=== PATIENT | female | born 1985 | race Caucasian/White ===

== ENCOUNTER 2021-08-27 08:35 | Day surgery (SDC) | payer BC ==
[2021-08-24 15:46] VITALS: BMI 52.5
[2021-08-27] MEDS ORDERED: BUPIVACAINE HCL/PF 0.25% (2.5MG/ML) 10 ML VIAL ONE (10:30)
[2021-08-27] MEDS ORDERED: oxyCODONE HCL 5 MG TABLET PO PRN (13:24)
[2021-08-27] MEDS ORDERED: ONDANSETRON 4 MG/2 ML VIAL IVPUSH PRN ×2 (13:24→13:28)
[2021-08-27] MEDS ORDERED: HYDROmorphone HCL/PF 1 MG/ML VIAL IVPB PRN (13:30)
[2021-08-27] MEDS ORDERED: SODIUM CHLORIDE 1,000 ML IV SCH (13:30)
[2021-08-27] MEDS ORDERED: FAMOTIDINE 20 MG/50 ML IVPB 20 MG/50 ML MG IVPB ONE (13:33)
[2021-08-27] MEDS ORDERED: GLYCOPYRROLATE 0.2 MG/1 ML VIAL ONE (13:51)
[2021-08-27] MEDS ORDERED: NEOSTIGMINE METHYLSULFATE 0.5 MG/1 ML - 10 ML MDV ONE (13:52)
[2021-08-27 14:31] LABS: CALCIUM 8.8 mg/dl (8.5-10); CREATININE 0.7 mg/dl (0.55-1.3)
[2021-08-27] MEDS ORDERED: ENOXAPARIN NA (PORCINE) 40 MG/0.4 ML DISP.SYRIN SQ ONE ×2 (15:00→16:25)
[2021-08-27 15:34] LABS: HEMATOCRIT 38.4 % (32.4-45.2); HEMOGLOBIN 12.6 GM/dL (10.7-15.3); MCH 27.1 pg (25.7-33.7); MCHC 32.8 g/dl (32.0-36.0); MEAN CELL VOLUME 82.6 fl (80-96); MEAN PLT VOLUME 8.1 fl (7.5-11.1); PLATELET COUNT 371 10^3/uL (134-434); RBC 4.64 M/mm3 (3.60-5.2); RDW 14.2 % (11.6-15.6); WHITE BLOOD COUNT 11.2 K/mm3 (4.0-10.0)
[2021-08-27 15:40] VITALS: TEMP 97.7
[2021-08-27] MEDS ORDERED: oxyCODONE HCL 5 MG TABLET ONE (16:24)
[2021-08-27] MEDS ORDERED: SIMETHICONE 80 MG TAB.CHEW (FP) PO PRN (17:32)
[2021-08-27] MEDS ORDERED: ONDANSETRON *ODT* 4 MG TABLET ONE (18:40)
[2021-08-27 19:22] VITALS: BP 149/87; PULSE 83
[2021-08-27] MEDS ORDERED: FAMOTIDINE 20 MG/50 ML IVPB 20 MG/50 ML MG IVPB SCH (22:00)
== END 2021-08-27 19:10 | disposition home or self-care (01) ==
LOC: FASU 08:35
PROVIDERS: ATTEND Surgery
PROC: 0FB24ZX Excision of Left Lobe Liver, Percutaneous Endoscopic Approach, Diagnostic (ICD-10-PCS; 2021-08-27)
PROC: 0DV64CZ Restriction of Stomach with Extraluminal Device, Percutaneous Endoscopic Approach (ICD-10-PCS; principal; 2021-08-27 11:26)
DX: E66.01 Morbid (severe) obesity due to excess calories (principal); Z68.43 Body mass index [BMI] 50.0-59.9, adult; R16.0 Hepatomegaly, not elsewhere classified
CPT/HCPCS: 43770; 49321; C1889; 36415; 74240-TC-FY; 80048; 84703; 85027; 88307-TC; 88313-TC; 94760; Q0162

== ENCOUNTER 2021-09-01 19:29 | Observation (INO) | payer BC ==
[2021-09-01 19:36] VITALS: BMI 52.4
[2021-09-01 20:25] LABS: BASO % 0.3 % (0-2.0); EOS % 1.3 % (0-4.5); HEMOGLOBIN 15.5 G/dL (10.7-15.3); LYMPH % 18.1 % (8-40); MCH 28.9 pg (25.7-33.7); MCHC 35.3 g/dl (32.0-36.0); MEAN PLT VOLUME 7.4 fl (7.5-11.1); MONO % 6.9 % (3.8-10.2); NEUT % 73.5 % (42.8-82.8); PLATELET COUNT 500.8 10^3/uL (134-434); RBC 5.37 10^6/uL (3.60-5.2); WHITE BLOOD COUNT 14.7 10^3/uL (4.0-10.8)
[2021-09-01 20:32] LABS: ALBUMIN 4.5 g/dl (3.4-5.0); BILIRUBIN,TOTAL 1.4 mg/dl (0.2-1); CALCIUM 10.1 mg/dl (8.5-10); CREATININE 0.8 mg/dl (0.55-1.3); TOT PROT 8.5 g/dl (6.4-8.2)
[2021-09-01 20:33] LABS: INR 1.2 (0.83-1.09); PROTHROMBIN TIME (PATIENT) 13.8 SEC (9.7-13.0)
[2021-09-02 09:23] LABS: CALCIUM 9.4 mg/dl (8.5-10); CREATININE 0.7 mg/dl (0.55-1.3)
[2021-09-02 09:33] LABS: MEAN PLT VOLUME 7.6 fl (7.5-11.1)
[2021-09-02 09:38] LABS: HEMATOCRIT 40.1 % (32.4-45.2); HEMOGLOBIN 13.7 G/dL (10.7-15.3); MCH 28.2 pg (25.7-33.7); MCHC 34.2 g/dl (32.0-36.0); MEAN CELL VOLUME 82.6 fl (80-96); PLATELET COUNT 480.3 10^3/uL (134-434); RBC 4.85 10^6/uL (3.60-5.2); RDW 14.9 % (11.6-15.6); WHITE BLOOD COUNT 13.4 10^3/uL (4.0-10.8)
[2021-09-02 14:06] VITALS: BP 128/79; TEMP 99.4
[2021-09-02 14:32] VITALS: PULSE 106
[2021-09-02 14:39] LABS: EPITHELIAL CELLS MANY /hpf
== END 2021-09-02 16:46 | disposition home or self-care (01) ==
LOC: FER 19:29 → FM/S 22:40 → UNDOADMOB 09-02 00:27
PROVIDERS: ADMIT Hospitalist; ATTEND Nurse Practitioner Acute Care
DX: Z98.84 Bariatric surgery status (principal); E66.01 Morbid (severe) obesity due to excess calories; Z68.43 Body mass index [BMI] 50.0-59.9, adult; R77.8 Other specified abnormalities of plasma proteins; R06.02 Shortness of breath; J95.89 Other postprocedural complications and disorders of respiratory system, not elsewhere classified; R00.0 Tachycardia, unspecified; Z20.822 Contact with and (suspected) exposure to COVID-19; Z87.891 Personal history of nicotine dependence
CPT/HCPCS: 36415; 71275-TC; 80048; 80053; 80061; 81003; 81015; 82550; 84443; 84484; 85025; 85027; 85610; 87040; 87086; 87186; 93005; 94761; 99285-25; C9803-CS; G0378; Q9967; U0003; U0005

== ENCOUNTER 2023-05-12 10:29 | Inpatient (IN) | payer BC ==
[2023-05-11 09:55] VITALS: BMI 39.6
[2023-05-12] MEDS ORDERED: BUPIVACAINE HCL/PF 2.5 MG/ML - 30 ML VIAL IJ ONE (11:55)
[2023-05-12] MEDS ORDERED: ROCURONIUM BROMIDE 50 MG/5 ML SYRINGE ONE (13:14)
[2023-05-12] MEDS ORDERED: PROPOFOL 40 ML ONE ×4 (13:14→15:37)
[2023-05-12] MEDS ORDERED: HYDROmorphone HCL/PF 1 MG/ML VIAL ONE (13:14)
[2023-05-12] MEDS ORDERED: PROPOFOL 80 ML ONE (13:25)
[2023-05-12] MEDS ORDERED: PROPOFOL 20 ML ONE ×5 (15:00→16:41)
[2023-05-12] MEDS ORDERED: MIDAZOLAM HCL 2 MG/2 ML SINGLE DOSE VIAL ONE (16:01)
[2023-05-12] MEDS ORDERED: SUGAMMADEX SODIUM 200 MG/2 ML VIAL ONE (16:40)
[2023-05-12] MEDS ORDERED: SODIUM CHLORIDE 1,000 ML IV SCH (17:00)
[2023-05-12] MEDS ORDERED: HYDROmorphone HCl 2 MG/ML VIAL IVPB PRN (17:03)
[2023-05-12] MEDS ORDERED: oxyCODONE HCL 5 MG TABLET PO PRN ×2 (17:06)
[2023-05-12] MEDS ORDERED: LACTATED RINGERS SOLUTION 1,000 ML IV SCH (17:15)
[2023-05-12 17:52] LABS: HEMATOCRIT 44.9 % (32.4-45.2); HEMOGLOBIN 15.1 G/dL (10.7-15.3); MCH 29.8 pg (25.7-33.7); MCHC 33.6 g/dl (32.0-36.0); MEAN CELL VOLUME 88.8 fl (80-96); MEAN PLT VOLUME 7.6 fl (7.5-11.1); PLATELET COUNT 273.3 10^3/uL (134-434); RBC 5.06 10^6/uL (3.60-5.2); RDW 14.4 % (11.6-15.6); WHITE BLOOD COUNT 9.2 10^3/uL (4.0-10.8)
[2023-05-12] MEDS ORDERED: METOCLOPRAMIDE HCL INJECTION 10 MG/2 ML VIAL ONE (18:09)
[2023-05-12 18:10] LABS: ALBUMIN 4.6 g/dl (3.4-5.0); BILIRUBIN,TOTAL 0.5 mg/dl (0.2-1); CALCIUM 9.3 mg/dl (8.5-10.1); CREATININE 0.9 mg/dl (0.6-1.3); POTASSIUM 4.1 mmol/L (3.5-5.1); TOT PROT 6.9 g/dl (6.4-8.2)
[2023-05-12] MEDS: METOCLOPRAMIDE HCL INJECTION 10 MG/2 ML VIAL IVPB SCH ×2 (18:24→22:21)
[2023-05-12] MEDS: FAMOTIDINE 20 MG/50 ML IVPB 20 MG/50 ML MG IVPB SCH (21:18)
[2023-05-12 23:07] LABS: HEMATOCRIT 41.2 % (32.4-45.2); HEMOGLOBIN 14.2 G/dL (10.7-15.3); MCH 30.2 pg (25.7-33.7); MCHC 34.4 g/dl (32.0-36.0); MEAN CELL VOLUME 87.9 fl (80-96); MEAN PLT VOLUME 7.7 fl (7.5-11.1); PLATELET COUNT 281.5 10^3/uL (134-434); RBC 4.69 10^6/uL (3.60-5.2); RDW 13.9 % (11.6-15.6); WHITE BLOOD COUNT 13.4 10^3/uL (4.0-10.8)
[2023-05-12 23:29] LABS: ALBUMIN 4.1 g/dl (3.4-5.0); BILIRUBIN,TOTAL 0.5 mg/dl (0.2-1); CALCIUM 8.8 mg/dl (8.5-10.1); CREATININE 0.7 mg/dl (0.6-1.3); POTASSIUM 4.1 mmol/L (3.5-5.1); TOT PROT 6.1 g/dl (6.4-8.2)
[2023-05-13] MEDS: ONDANSETRON 4 MG/2 ML VIAL IVPUSH PRN ×2 (00:18→06:41)
[2023-05-13 02:11] VITALS: RESP 18
[2023-05-13] MEDS: METOCLOPRAMIDE HCL INJECTION 10 MG/2 ML VIAL IVPB SCH ×3 (05:59→10:21)
[2023-05-13] MEDS: HYDROmorphone HCl 2 MG/ML VIAL IVPB PRN ×2 (06:27→12:09)
[2023-05-13 08:17] LABS: HEMATOCRIT 41.4 % (32.4-45.2); HEMOGLOBIN 13.5 G/dL (10.7-15.3); MCH 28.9 pg (25.7-33.7); MCHC 32.6 g/dl (32.0-36.0); MEAN CELL VOLUME 88.5 fl (80-96); MEAN PLT VOLUME 8.2 fl (7.5-11.1); PLATELET COUNT 337.6 10^3/uL (134-434); RBC 4.68 10^6/uL (3.60-5.2); RDW 14.5 % (11.6-15.6); WHITE BLOOD COUNT 12.7 10^3/uL (4.0-10.8)
[2023-05-13 08:47] LABS: ALBUMIN 3.8 g/dl (3.4-5.0); BILIRUBIN,TOTAL 0.6 mg/dl (0.2-1); CALCIUM 8.4 mg/dl (8.5-10.1); CREATININE 0.6 mg/dl (0.6-1.3); TOT PROT 5.7 g/dl (6.4-8.2)
[2023-05-13] MEDS: FAMOTIDINE 20 MG/50 ML IVPB 20 MG/50 ML MG IVPB SCH (09:51)
[2023-05-13 11:17] VITALS: BP 127/81; PULSE 66; TEMP 98.6
[2023-05-13] MEDS ORDERED: oxyCODONE HCL 5 MG TABLET PO PRN (12:57)
[2023-05-13] MEDS ORDERED: ACETAMINOPHEN 325 MG TABLET (FP) PO PRN (12:57)
[2023-05-13] MEDS ORDERED: SODIUM CHLORIDE 1,000 ML IV SCH (13:00)
== END 2023-05-13 13:51 | disposition home or self-care (01) | DRG 621 ==
LOC: FM/S 10:29
PROVIDERS: ADMIT Surgery; ATTEND Surgery
PROC: 0DP64CZ Removal of Extraluminal Device from Stomach, Percutaneous Endoscopic Approach (ICD-10-PCS; 2023-05-12)
PROC: 0DB64Z3 Excision of Stomach, Percutaneous Endoscopic Approach, Vertical (ICD-10-PCS; principal; 2023-05-12 13:52)
PROC: 0DNW4ZZ Release Peritoneum, Percutaneous Endoscopic Approach (ICD-10-PCS; 2023-05-12 13:52)
DX: E66.01 Morbid (severe) obesity due to excess calories (principal); Z68.45 Body mass index [BMI] 70 or greater, adult; K66.0 Peritoneal adhesions (postprocedural) (postinfection)
CPT/HCPCS: 36415; 74240-TC-FY; 80053; 81025; 85027; 86850; 86900; 86901; 88300-TC; 88304-TC; 88307-TC; 94760

== ENCOUNTER 2023-05-21 23:25 | Emergency (ER) | payer BC ==
[2023-05-21 23:31] VITALS: BP 132/84; PULSE 71; RESP 17; TEMP 97.8; BMI 37.2
== END 2023-05-22 00:17 | disposition home or self-care (01) ==
LOC: FER 23:25
DX: L76.82 Other postprocedural complications of skin and subcutaneous tissue (principal); L29.9 Pruritus, unspecified
CPT/HCPCS: 99282-25

== ENCOUNTER 2023-05-23 15:19 | Emergency (ER) | payer BC ==
[2023-05-23 17:26] VITALS: BP 148/71; PULSE 89; RESP 20; TEMP 98.3; BMI 36.8
[2023-05-23] MEDS ORDERED: predniSONE 20 MG TABLET (UD) PO ONE (18:01)
[2023-05-23] MEDS ORDERED: predniSONE 20 MG TABLET (UD) ONE (18:31)
== END 2023-05-23 18:36 | disposition home or self-care (01) ==
LOC: FER 15:19
DX: L30.9 Dermatitis, unspecified (principal); L29.9 Pruritus, unspecified
CPT/HCPCS: 99283-25

== ENCOUNTER 2023-05-30 09:49 | Emergency (ER) | payer BC ==
[2023-05-30] MEDS ORDERED: SODIUM CHLORIDE 0.9% 500 ML INFUS.BAG IV STA (09:55)
[2023-05-30 09:58] VITALS: BP 122/81; PULSE 73; RESP 17; TEMP 97.7; BMI 35.6
[2023-05-30 10:52] LABS: HEMATOCRIT 46.3 % (32.4-45.2); HEMOGLOBIN 15.8 G/dL (10.7-15.3); MCHC 34.2 g/dl (32.0-36.0); MEAN CELL VOLUME 87.7 fl (80-96); MEAN PLT VOLUME 9.2 fl (7.5-11.1); RBC 5.28 10^6/uL (3.60-5.2); RDW 14.7 % (11.6-15.6); WHITE BLOOD COUNT 9.1 10^3/uL (4.0-10.8)
[2023-05-30 12:29] LABS: ALBUMIN 3.9 g/dl (3.4-5.0); BILIRUBIN,TOTAL 0.5 mg/dl (0.2-1); CALCIUM 9.1 mg/dl (8.5-10.1); CREATININE 0.8 mg/dl (0.6-1.3); PHOSPHOROUS 3.4 (2.5-4.9); POTASSIUM 4.2 mmol/L (3.5-5.1); TOT PROT 6.1 g/dl (6.4-8.2)
== END 2023-05-30 12:51 | disposition home or self-care (01) ==
LOC: FER 09:49
DX: E86.0 Dehydration (principal); Z98.84 Bariatric surgery status
CPT/HCPCS: 36415; 80053; 83735; 84100; 85027; 99284-25

== ENCOUNTER 2023-09-04 13:30 | Emergency (ER) | payer BC ==
[2023-09-04 13:42] VITALS: BP 139/81; PULSE 78; RESP 18; TEMP 98.5; BMI 34.9
== END 2023-09-04 14:21 | disposition home or self-care (01) ==
LOC: FER 13:30
DX: L29.9 Pruritus, unspecified (principal); T78.40XA Allergy, unspecified, initial encounter
CPT/HCPCS: 99283-25